=== PATIENT | male | born 1945 | race Caucasian/White ===

== ENCOUNTER → 2017-12-03 | Outpatient (REF) | payer MEDICARE, OTHER ==
[2017-12-03 20:09] LABS: FERRITIN 113 NG/ML (26-388); FOLATE 19.6 NG/ML; IRON (FE) 66 UG/DL (65-175); PERCENT SATURATION 19.3 % (19.7-50.0); TOTAL IRON BINDING CAPACITY 342 UG/DL (250-450)
== END ==
LOC: M LAB REF 17:00
DX: D64.9 Anemia, unspecified (principal)
CPT/HCPCS: 82746

== ENCOUNTER → 2018-12-05 | Outpatient (REF) | payer MEDICARE, OTHER ==
[2018-12-05 18:04] LABS: PERCENT SATURATION 20.1 % (19.7-50.0)
== END ==
LOC: M LAB REF 17:00
PROVIDERS: ATTEND Internal Medicine Nephrology
DX: D50.9 Iron deficiency anemia, unspecified (principal)

== ENCOUNTER 2019-10-21 21:53 | Emergency (ER) | payer MEDICARE, OTHER ==
[2019-10-21] MEDS ORDERED: BOOSTRIX/ADACEL VACCINE (DIPHTH/PERTUSS/ACELL/TETANUS) 0.5ML SYR As Ordered ONE (22:38)
[2019-10-21] MEDS ORDERED: BOOSTRIX/ADACEL VACCINE (DIPHTH/PERTUSS/ACELL/TETANUS) 0.5ML SYR ONE (22:38)
== END 2019-10-21 23:15 | disposition home or self-care (01) ==
LOC: M ED 21:53
DX: S00.01XA Abrasion of scalp, initial encounter (principal); S00.03XA Contusion of scalp, initial encounter; S46.912A Strain of unspecified muscle, fascia and tendon at shoulder and upper arm level, left arm, initial encounter; W22.8XXA Striking against or struck by other objects, initial encounter; Y92.89 Other specified places as the place of occurrence of the external cause; Y93.89 Activity, other specified; Y99.0 Civilian activity done for income or pay; E11.9 Type 2 diabetes mellitus without complications; Z79.84 Long term (current) use of oral hypoglycemic drugs; Z88.0 Allergy status to penicillin

== ENCOUNTER → 2021-05-21 | Outpatient (CLI) | payer MEDICARE | LOC: M RAD 09:30 | PROVIDERS: ATTEND Physician Assistant | DX: K40.90 Unilateral inguinal hernia, without obstruction or gangrene, not specified as recurrent (principal) ==

== ENCOUNTER 2021-09-24 08:58 | Emergency (ER) | payer MEDICARE, OTHER ==
[~2021-09-24] VITALS: Ht 182.9 cm; Wt 75.0 kg
[2021-09-24] MEDS ORDERED: GABA-282 (09:05)
[2021-09-24] MEDS ORDERED: METF500T13 (09:05)
[2021-09-24] MEDS ORDERED: ATOR1TAB21 (09:05)
[2021-09-24] MEDS ORDERED: LISI2.5T9 (09:05)
[2021-09-24] MEDS ORDERED: KETOROLAC 30 MG/ML 1ML VIAL IM ONE (11:40)
[2021-09-24 12:28] VITALS: BP 142/81
== END 2021-09-24 12:31 | disposition home or self-care (01) ==
LOC: M ED 08:58
DX: M16.11 Unilateral primary osteoarthritis, right hip (principal); I10 Essential (primary) hypertension; E11.9 Type 2 diabetes mellitus without complications; E78.5 Hyperlipidemia, unspecified; Z88.0 Allergy status to penicillin; Z79.899 Other long term (current) drug therapy; Z79.84 Long term (current) use of oral hypoglycemic drugs
CPT/HCPCS: 73502; 96374; 99283; J1885

== ENCOUNTER → 2022-07-17 | Outpatient (CLI) | payer MEDICARE, OTHER ==
[~2022-07-17] MED LIST: ATOR1TAB21; GABA-282; LISI2.5T9; METF500T13
[2022-07-17 13:47] LABS: BLOOD UREA NITROGEN 21 MG/DL (9-23); CREATININE FOR GFR 0.85 MG/DL (0.70-1.30); GLOMERULAR FILTRATION RATE > 60.0 (>42)
== END ==
LOC: M PLALAB 10:35
PROVIDERS: ATTEND Student in an Organized Health Care Education/Training Program
DX: M93.261 Osteochondritis dissecans, right knee (principal)

== ENCOUNTER → 2022-08-07 | Outpatient (CLI) | payer MEDICARE, OTHER | LOC: M PLARAD 14:53 | PROVIDERS: ATTEND Student in an Organized Health Care Education/Training Program | DX: S80.01XA Contusion of right knee, initial encounter (principal); S83.31XA Tear of articular cartilage of right knee, current, initial encounter; M71.21 Synovial cyst of popliteal space [Baker], right knee; X58.XXXA Exposure to other specified factors, initial encounter; Y92.89 Other specified places as the place of occurrence of the external cause; Y93.89 Activity, other specified; Y99.8 Other external cause status ==